=== PATIENT | male | born 1955 | race Caucasian/White ===

== ENCOUNTER 2018-04-02 09:54 | Day surgery (SDC) | payer BC ==
[2018-03-31 11:48] VITALS: BMI 36.6
[2018-04-02] MEDS ORDERED: LACTATED RINGERS 1,000 ML IV SCH (10:30)
[2018-04-02 10:43] VITALS: RESP 18; TEMP 98.2
[2018-04-02] MEDS ORDERED: LIDOCAINE 1% 20 ML VIAL (10MG/ML) FOR IV START INTRADERMA ONE (10:54)
[2018-04-02] MEDS ORDERED: PROPOFOL 10 MG/ML 20 ML VIAL IV ONE (11:53)
[2018-04-02] MEDS ORDERED: LIDOCAINE 1% INJ 10MG/ML (20 ML MDV) ONE (11:53)
--- NOTE | 2018-04-02 12:26 | P.PCN ---
Date of Procedure: 04/02/18 Procedure(s) Performed: Procedure: Total colonoscopy with polypectomy. Preoperative diagnosis: Screening for neoplasia. Postoperative diagnosis: Small right colon polyps snared but no large polyps or cancer. Preparation: HalfLytely prep. Sedation: Was provided by anesthesia. Brief clinical history: The patient is a 62-year-old male who is scheduled for this evaluation for screening for neoplasia because of family history of colon cancer in his father. His prior exam was around 5 years ago. The patient has no abdominal complaints, bleeding or anemia. Procedure: With the patient on his left lateral decubitus position and after informed consent and adequate sedation, the perianal area was inspected and it did not show any fissures or fistulas. There were no masses felt on digital rectal examination. The Olympus CFQ 160L video colonoscope was then inserted in the rectum in the usual fashion and advanced to the cecum. There were 3 polyps in the right colon that were snared and retrieved by suction. There were small in size. There were no large polyps or cancer. No obvious diverticular disease or other pathology. I retroflexed endoscope in the rectum before the endoscope was withdrawn. The patient tolerated the procedure well. Plan: The patient was reassured. Discussed dietary measures. He will follow up with you as planned and I recommended repeat exam in 5 years.
[2018-04-02 12:38] VITALS: BP 137/80; PULSE 54
== END 2018-04-02 13:15 | disposition home or self-care (01) ==
LOC: ORWHC2ENDO 09:54
DX: Z12.11 Encounter for screening for malignant neoplasm of colon (principal); D12.2 Benign neoplasm of ascending colon; K63.5 Polyp of colon; Z80.0 Family history of malignant neoplasm of digestive organs; J45.909 Unspecified asthma, uncomplicated; E66.01 Morbid (severe) obesity due to excess calories; Z68.36 Body mass index [BMI] 36.0-36.9, adult
CPT/HCPCS: 88305; 45385; J2001; J2704

== ENCOUNTER → 2020-02-17 | Outpatient (CLI) | payer BC | END | disposition home or self-care (01) | LOC: LABWHC1 11:24 | PROVIDERS: ATTEND Surgery | DX: Z01.812 Encounter for preprocedural laboratory examination (principal); Z52.4 Kidney donor | CPT/HCPCS: 86900; 86901 ==

== ENCOUNTER → 2020-03-23 | Outpatient (CLI) | payer SELFPAY ==
--- NOTE | 2020-03-23 12:11 | XR ---
EXAMINATION TYPE: XR chest 2V DATE OF EXAM: 03/23/2020 COMPARISON: None INDICATION: Preop transplant donation TECHNIQUE: Frontal and lateral views of the chest are obtained. FINDINGS: The heart size is normal. The pulmonary vasculature is normal. The lungs are clear. Good inspiratory effort is present. IMPRESSION: 1. No acute pulmonary process.
[2020-03-23 12:39] LABS: Appearance,Urine Clear (Clear); Bilirubin,Urine Negative (Negative); Blood,Urine Negative (Negative); Color,Urine Light Yellow; Glucose,Urine (UA) Negative (Negative); Ketones,Urine Negative (Negative); Leukocyte Esterase,Urine Negative (Negative); Nitrite,Urine Negative (Negative); Protein,Urine Negative (Negative); Specific Gravity,Urine 1.004 (1.001-1.035); Urobilinogen,Urine <2.0 mg/dL (<2.0)
[2020-03-23 12:59] LABS: Basophils # (A) 0.2 k/uL (0-0.2); Basophils % (A) 2 %; Eosinophils # (A) 0.3 k/uL (0-0.7); Eosinophils % (A) 3 %; HCT 53.5 % (39.0-53.0); HGB 17.4 gm/dL (13.0-17.5); Lymphocytes # (A) 3.2 k/uL (1.0-4.8); Lymphocytes % (A) 31 %; MCH 33.2 pg (25.0-35.0); MCHC 32.6 g/dL (31.0-37.0); Macrocytosis Slight; Mean Platelet Volume 9.3; Monocytes # (A) 0.8 k/uL (0-1.0); Monocytes % (A) 8 %; Neutrophils # (A) 5.7 k/uL (1.3-7.7); Neutrophils % (A) 55 %; Platelet Count 252 k/uL (150-450); RBC 5.25 m/uL (4.30-5.90); RDW 13.2 % (11.5-15.5); WBC 10.4 k/uL (3.8-10.6)
[2020-03-23 20:58] LABS: INR 1.11 (0.90-1.11); Partial Thromboplastin Time 27.6 sec (24.7-29.9); Prothrombin Time 11.8 sec (9.9-11.9)
[2020-03-23 21:08] LABS: HIV 2 AB Non-Reactive (Non-Reactive); HIV AB P24 Non-Reactive (Non-Reactive); HIV P24 AG Non-Reactive (Non-Reactive)
[2020-03-23 22:30] LABS: Microalbumin Creatinine Ratio <30 mg/g Creat (0-30); Urine Creatinine 35.7 mg/dL
[2020-03-24 00:55] LABS: African American GFR (CKD) 91.8 (60.0-200.0); Albumin/Globulin Ratio 2.38 (1.60-3.17); Anion Gap 15.2 mmol/L (4.00-12.00); Bilirubin, Conjugated 0.2 mg/dL (0.20-0.40); Calcium 9.9 mg/dL (8.7-10.3); Carbon Dioxide 18.8 mmol/L (21.6-31.8); Chol/HDL Ratio 5.02; Globulin 2.1 g/dL (1.6-3.3); LDL Cholesterol,Calculated 123.2 mg/dL (0.0-131.0); Non-African American GFR(CKD) 79.2 (60.0-200.0); Potassium 4.6 mmol/L (3.5-5.5); Prostate Specific Antigen 0.9 ng/mL (0.0-4.5); Total Bilirubin 0.8 mg/dL (0.3-1.2); Total Protein 7.1 g/dL (6.2-8.2); VLDL Calculation 45.8 mg/dL (5.00-40.00)
[2020-03-24 02:19] LABS: Hepatitis B Core IgM Non-Reactive (Non-Reactive); Hepatitis B Surface AB- Quant 3.5 mIU/mL; Hepatitis B Surface Antibody Non-Reactive (Non-Reactive); Hepatitis B Surface Antigen Non-Reactive (Non-Reactive); Hepatitis C IgG Antibody Non-Reactive (Non-Reactive)
[2020-03-24 03:39] LABS: Total Protein 24 Hour,Urine 125.8 mg/24Hr; Total Volume 24 Hour,Urine 2925 mL
[2020-03-24 04:44] LABS: EBV - VCA (IgG) >750.0 U/mL (<18.0); EBV - VCA IgM <10.0 U/mL (<36.0)
[2020-03-24 11:53] LABS: Creatinine 24 Hour,Urine 2070.9 mg/24hr (1000.0-2000.0)
[2020-03-27 14:13] LABS: West Nile Virus IgM Antibody 0.04 INDEX (<0.90)
== END | disposition home or self-care (01) ==
LOC: LABWHC1 09:01
PROVIDERS: ATTEND Surgery
DX: Z00.5 Encounter for examination of potential donor of organ and tissue (principal); Z13.6 Encounter for screening for cardiovascular disorders
CPT/HCPCS: 36415; 71046; 80053; 80061; 81003; 81050; 82043; 82570; 82575; 82977; 83036; 83615; 84100; 84153; 84156; 85025; 85610; 85730; 86480; 86644; 86665; 86704; 86705; 86706; 86780; 86788; 86789; 86803; 87086; 87340; 87390; 87522; 93005

== ENCOUNTER 2024-09-17 09:04 | Day surgery (SDC) | payer BC, MEDICARE ==
[2024-09-15 15:14] VITALS: BMI 36.6
[2024-09-17] MEDS: IV FLUID CONTINUATION 1,000 ML IV ONE (09:31)
[2024-09-17 09:50] LABS: Glucose,Whole Blood 117 mg/dL (70-110)
[2024-09-17 09:51] VITALS: TEMP 97.3
[2024-09-17] MEDS: LACTATED RINGERS 1,000 ML IV SCH (09:53)
[2024-09-17] MEDS ORDERED: PROPOFOL 10 MG/ML 20 ML VIAL IV ONE (10:33)
--- NOTE | 2024-09-17 10:50 | P.PCN ---
Date of Procedure: 09/17/24 Procedure(s) Performed: BRIEF HISTORY: Patient is a 69-year-old pleasant white male scheduled for an elective colonoscopy as a part of screening for colon cancer. PROCEDURE PERFORMED: Colonoscopy. PREOPERATIVE DIAGNOSIS: Screening for colon cancer. IV sedation per Anesthesia. PROCEDURE: After informed consent was obtained, the patient, was brought into the endoscopy unit. IV sedation was administered by Anesthesia under continuous monitoring. Digital rectal examination was normal. Initially the Olympus CF-160 flexible video colonoscope was then inserted in the rectum, gradually advanced into the cecum without any difficulty. Careful examination was performed as the scope was gradually being withdrawn. Ileocecal valve and the appendiceal orifice were visualized and appeared normal. Prep was excellent. Mucosa of the cecum, ascending colon, transverse colon, descending colon, sigmoid colon, and rectum appeared normal. Retroflexion was performed in the rectum and no lesions were seen. The patient tolerated the procedure well. IMPRESSION: Normal-appearing colon from rectum to cecum with no evidence of colorectal neoplasia. RECOMMENDATIONS: Findings of this examination were discussed with the patient as well as his family. He was advised to have repeat screening colonoscopy in 10 years..
[2024-09-17 11:14] VITALS: BP 154/99; PULSE 60; RESP 16
== END 2024-09-17 11:35 | disposition home or self-care (01) ==
LOC: ORWHC2ENDO 09:04
PROVIDERS: ATTEND Internal Medicine Gastroenterology
DX: Z12.11 Encounter for screening for malignant neoplasm of colon (principal); E78.5 Hyperlipidemia, unspecified; E11.9 Type 2 diabetes mellitus without complications; J45.909 Unspecified asthma, uncomplicated; Z88.8 Allergy status to other drugs, medicaments and biological substances; Z79.899 Other long term (current) drug therapy
CPT/HCPCS: J2704; G0121